=== PATIENT | female | born 1945 | race Hispanic/Latino ===

== ENCOUNTER 2024-01-24 17:07 | Emergency (ER) | payer OTHER, MEDICAID ==
[2024-01-24 19:18] LABS: ALT (SGPT) 18 U/L (8-55); AST (SGOT) 13 U/L (5-34); Albumin 3.5 g/dL (3.4-4.8); Alkaline Phosphatase 127 U/L (40-110); Anion Gap 11 mmol/L (10-20); BUN (Urea Nitrogen) 26 mg/dL (9.8-20.1); Bilirubin, Total 0.3 mg/dL (0.2-1.2); Calc. Creatinine Clearance 0 mL/min (70-130); Calcium 9.8 mg/dL (7.8-10.44); Carbon Dioxide 30 mmol/L (23-31); Chloride 104 mmol/L (98-107); Estimated GFR 43; Globulin 4.1 g/dL (2.4-3.5); Glucose 104 mg/dL (83-110); Protein, Total 7.6 g/dL (5.8-8.1); Sodium 141 mmol/L (136-145)
[2024-01-24 19:45] LABS: #Basophils 0.03 10x3/uL (0.0-0.2); #Eosinophils 0.59 10x3/uL (0.0-0.5); #Monocytes 1.06 10x3/uL (0.0-1.1); #Neutrophils 6.54 10x3/uL (1.5-8.4); %Basophils 0.3 % (0.0-2.0); %Eosinophils 5.5 % (0.0-6.0); %Lymphocytes 22.5 % (18.0-47.0); %Monocytes 9.9 % (0.0-10.0); %Neutrophils 61.4 % (40.0-75.0); Hematocrit 35.4 % (34.9-44.5); Hemoglobin 11.5 g/dL (12.0-15.5); Mean Corpuscular HGB CONC 32.5 g/dL (32.0-36.0); Mean Corpuscular Hemoglobin 31.3 pg (27.0-33.0); Mean Corpuscular Volume 96.2 fL (81.6-98.3); Mean Platelet Volume 9.9 fL (7.4-10.4); Platelet Count 299 10x3/uL (150-450); RBC Distribution Width 13.1 % (11.5-14.5); Red Blood Cell (RBC) Count 3.68 10x6/uL (3.90-5.03); White Blood Cell (WBC) Count 10.7 10x3/uL (3.5-10.5)
== END 2024-01-24 22:13 | disposition home or self-care (01) ==
LOC: CSHERS 17:07
DX: L03.90 Cellulitis, unspecified (principal); R60.0 Localized edema; I10 Essential (primary) hypertension
CPT/HCPCS: 36415; 80053; 83880; 85025; 93970